=== PATIENT | female | born 1975 | race Caucasian/White ===

== ENCOUNTER 2017-01-25 16:54 | Emergency (ER) | payer SELFPAY ==
[~2017-01-25] VITALS: Ht 157.5 cm; Wt 69.9 kg
[2017-01-25 17:29] VITALS: BP 118/74
--- NOTE | 2017-01-25 18:19 | NUR ---
Patient to bed 02.
--- NOTE | 2017-01-25 18:20 | NUR ---
PT PRESENTS TO ER FOR EVALUATION OF DOG BITE. PT STATES SHE WAS PLAYING WITH HER DOG AND HE NIPPED AT HER RIGHT INNER WRIST. 1 SMALL PUNCTURE WOUND NOTED, NO ACTIVE BLEEDING. DENIES N/V/D; SKIN IS PINK/WARM/DRY; AAOX4 WITH EVEN AND STEADY GAIT; LUNGS CLEAR BL; HR EVEN AND REGULAR; PT DENIES ANY FEVER, CP, SOB, OR COUGH AT THIS TIME; PATIENT STATES PAIN OF 0/10 AT THIS TIME; VSS; PATIENT POSITIONED FOR COMFORT; HOB ELEVATED; BEDRAILS UP X2; BED DOWN. ER MD MADE AWARE OF PT STATUS.
[2017-01-25 19:01] VITALS: BP 121/75
--- NOTE | 2017-01-25 19:01 | NUR ---
Patient discharged with v/s stable. Written and verbal after care instructions given and explained. Patient verbalized understanding. Ambulatory with steady gait. All questions addressed prior to discharge. Advised to follow up with PMD.
== END 2017-01-25 19:01 | disposition home or self-care (01) ==
LOC: MED 16:54
DX: S51.851A Open bite of right forearm, initial encounter (principal); I10 Essential (primary) hypertension; W54.0XXA Bitten by dog, initial encounter; Y93.89 Activity, other specified; Y92.89 Other specified places as the place of occurrence of the external cause; Y99.8 Other external cause status
CPT/HCPCS: 90471; 90715; 99283